=== PATIENT | male | born 1990 | race Caucasian/White ===

== ENCOUNTER 2016-11-22 11:08 | Emergency (ER) | payer OTHER ==
[2016-11-22 11:24] VITALS: BMI 36.0
[2016-11-22] MEDS ORDERED: Sodium Chloride 0.9% 1,000 ML IV STA (11:39)
--- NOTE | 2016-11-22 11:39 | ED PDOC ---
Arrival/HPI - General Chief Complaint: Male Genitourinary Time Seen by Provider: 11/22/16 11:32 Historian: Patient - History of Present Illness Narrative History of Present Illness (Text): 11/22/16 11:38 A 26 year old male, whose past medical history includes hypertension and kidney stones, presents to the emergency department complaining of right lower abdominal pain since this morning. Patient notes right flank pain, nausea and non-bilious non-bloody vomiting. Patient reports his symptoms feels similar to previous kidney stones. Patient denies any fever, diarrhea, urinary symptoms, back pain, chest pain,shortness of breath or any other complaints. PMD: Dr. Tarango Time/Duration: Other (This morning) Symptom Course: Unchanged Quality: Other Context: Home Associated Symptoms (Text): 11/22/16 12:25 3 hour history of severe right lower quadrant and right flank pain similar to previous kidney stones. There was some nausea and vomiting but no diarrhea. No genitourinary symptoms. No trauma. No fever or chills. Past Medical History - Provider Review Nursing Documentation Reviewed: Yes - Infectious Disease Hx of Infectious Diseases: None - Tetanus Immunization Tetanus Immunization: Unknown - Cardiac Hx Cardiac Disorders: No Hx Hypertension: Yes - Pulmonary Hx Respiratory Disorders: No - Neurological Hx Neurological Disorder: No - HEENT Hx HEENT Disorder: No - Renal Hx Renal Disorder: Yes Hx Kidney Stones: Yes - Endocrine/Metabolic Hx Endocrine Disorders: Yes Hx Diabetes Mellitus Type 2: Yes Other/Comment: NIDDM - Hematological/Oncological Hx Blood Disorders: No - Integumentary Hx Dermatological Disorder: No - Musculoskeletal/Rheumatological Hx Musculoskeletal Disorders: No - Gastrointestinal Hx Gastrointestinal Disorders: No - Genitourinary/Gynecological Hx Genitourinary Disorders: No - Psychiatric Hx Psychophysiologic Disorder: No Hx Substance Use: No - Past Surgical History Past Surgical History: No Previous - Anesthesia Hx Anesthesia: No - Suicidal Assessment Feels Threatened In Home Enviroment: No Family/Social History - Physician Review Nursing Documentation Reviewed: Yes Family/Social History: No Known Family HX Smoking Status: Never Smoked Hx Alcohol Use: No Hx Substance Use: No Allergies/Home Meds Allergies/Adverse Reactions: Allergies No Known Allergies Allergy (Verified 04/06/16 08:32) Home Medications: Home Meds Medication Instructions Recorded Confirmed Metformin HCl [Glucophage] 2,000 mg PO HS 03/23/14 11/22/16 Lisinopril [Zestril] 5 mg PO DAILY 11/22/16 11/22/16 Review of Systems - Physician Review All systems were reviewed & negative as marked: Yes - Review of Systems Constitutional: absent: Fevers Respiratory: absent: SOB Cardiovascular: absent: Chest Pain Gastrointestinal: Abdominal Pain (RLQ pain), Nausea, Vomiting. absent: Diarrhea Genitourinary Male: absent: Dysuria, Frequency, Hematuria, Urinary Output Changes Musculoskeletal: Other (Right flank pain). absent: Back Pain Physical Exam Vital Signs Reviewed: Yes Vital Signs Temp Pulse Resp BP Pulse Ox 11/22/16 13:30 98.5 F 75 18 111/70 99 11/22/16 12:42 69 18 135/61 98 11/22/16 11:21 98.9 F 77 16 138/64 98 Temperature: Afebrile Blood Pressure: Normal Pulse: Regular Respiratory Rate: Normal Appearance: Positive for: Well-Appearing, Non-Toxic, Uncomfortable, Other ( Diaphoretic) Pain Distress: Moderate Mental Status: Positive for: Alert and Oriented X 3 - Systems Exam Head: Present: Atraumatic, Normocephalic Pupils: Present: PERRL Extroacular Muscles: Present: EOMI Conjunctiva: Present: Normal Respiratory/Chest: Present: Clear to Auscultation, Good Air Exchange. No: Respiratory Distress, Accessory Muscle Use Cardiovascular: Present: Regular Rate and Rhythm, Normal S1, S2. No: Murmurs Abdomen: Present: Normal Bowel Sounds. No: Tenderness, Distention, Peritoneal Signs Back: Present: Normal Inspection. No: CVA Tenderness Upper Extremity: Present: Normal Inspection. No: Cyanosis, Edema Lower Extremity: Present: Normal Inspection. No: Edema Neurological: Present: GCS=15, CN II-XII Intact, Speech Normal, Motor Func Grossly Intact Skin: Present: Warm, Normal Color, Diaphoretic. No: Rashes Psychiatric: Present: Alert, Oriented x 3, Normal Insight, Normal Concentration Medical Decision Making ED Course and Treatment: 11/22/16 11:38 Impression: A 26 year old male with right lower abdominal and right flank pain. Patient notes nausea and vomiting. Patient states his symptoms feels similar to previous kidney stones. Plan: -- Abdomen and pelvis CT -- Labs -- Urine culture and Urinalysis -- IV fluids, Toradol and Zofran -- Reassess and disposition Progress Notes: 11/22/16 12:26 Patient passed a stone wall in the emergency department. His symptoms have completely resolved. He feels better and wants to go home. His workup is not yet complete, but he reports that he feels fine and wants to go home. He will be discharged in stable condition. Follow up in the emergency department as needed - Lab Interpretations Lab Results: 11/22/16 12:10 11/22/16 12:10 Lab Results 11/22/16 12:10: WBC 4.5 D, RBC 5.29, Hgb 15.1, Hct 43.6, MCV 82.4, MCH 28.5, MCHC 34.6, RDW 12.8, Plt Count 242, MPV 10.4, Gran % 51.3, Lymph % (Auto) 37.5 H , [place] % (Auto) 7.5 H, Eos % (Auto) 3.3, Baso % (Auto) 0.4, Gran # 2.32, Lymph # 1.7, [place] # 0.3, Eos # 0.2, Baso # 0.02, Sodium 137, Potassium 4.4, Chloride 98, Carbon Dioxide 26, Anion Gap 17, BUN 15, Creatinine 0.7, Est GFR ( Amer) > 60, Est GFR (Non-Af Amer) > 60, Random Glucose 148 H, Calcium 10.1, Total Bilirubin 0.6, AST 29, ALT 44, Alkaline Phosphatase 71, Total Protein 8.7 H, Albumin 4.9 H, Globulin 3.7, Albumin/Globulin Ratio 1.3, Lipase 59 11/22/16 11:45: Urine Color Light yellow, Urine Appearance Clear, Urine pH 6.5, Ur Specific [place] 1.010, Urine Protein Negative, Urine Glucose (UA) Negative, Urine Ketones Negative, Urine Blood Moderate H, Urine Nitrate Negative, Urine Bilirubin Negative, Urine Urobilinogen 0.2, Ur Leukocyte Esterase Negative, Urine RBC 10 - 15, Urine WBC 0 - 2, Ur Epithelial Cells 0 - 2, Urine Bacteria Trace I have reviewed the lab results: Yes - RAD Interpretation Radiology Orders: 11/22/16 11:39 ABD & PELVIS W/O PO OR IV CONT [CT] Stat - Medication Orders Current Medication Orders: Discontinued Medications Sodium Chloride (Sodium Chloride 0.9%) 1,000 mls @ 1,000 mls/hr IV .Q1H STA Stop: 11/22/16 12:38 Last Admin: 11/22/16 11:45 Dose: 1,000 MLS/HR eMAR Start Stop Document 11/22/16 11:45 SF (Rec: 11/22/16 11:57 [place] [facility] [id number] Intravenous Solution Start Date 11/22/16 Start Time 11:57 End Date 11/22/16 End time 12:57 Total Infusion Time 60 Ketorolac Tromethamine (Toradol) 30 mg IVP STAT STA Stop: 11/22/16 11:40 Last Admin: 11/22/16 11:45 Dose: 30 MG IVP Administration Document 11/22/16 11:45 SF (Rec: 11/22/16 11:56 [place] [facility] [id number] Charges for Administration # of IVP Administrations 1 Ondansetron HCl (Zofran Inj) 4 mg IVP STAT STA Stop: 11/22/16 11:40 Last Admin: 11/22/16 11:45 Dose: 4 MG IVP Administration Document 11/22/16 11:45 SF (Rec: 11/22/16 11:56 [place] [facility] [id number]) Charges for Administration # of IVP Administrations 1 - Scribe Statement The provider has reviewed the documentation as recorded by the July Naqvi Provider Scribe Attestation: All medical record entries made by the Scribe were at my direction and personally dictated by me. I have reviewed the chart and agree that the record accurately reflects my personal performance of the history, physical exam, medical decision making, and the department course for this patient. I have also personally directed, reviewed, and agree with the discharge instructions and disposition. Disposition/Present on Arrival - Present on Arrival Any Indicators Present on Arrival: No History of DVT/PE: No History of Uncontrolled Diabetes: No Urinary Catheter: No History of Decub. Ulcer: No History Surgical Site Infection Following: None - Disposition Have Diagnosis and Disposition been Completed?: Yes Diagnosis: Renal colic, Nausea and vomiting, Kidney stone on right side Disposition: HOME/ ROUTINE Disposition Time: 12:27 Patient Plan: Discharge Condition: IMPROVED Discharge Instructions (ExitCare): Renal Colic (ED) Additional Instructions: Follow-up with PMD and urologist. Follow up in the ER as needed. Prescriptions: Tramadol HCl [Ultram] 50 mg PO Q6 PRN #14 tab PRN Reason: Pain Referrals: Beba Tarango MD [Primary Care Provider] - Follow up with primary
[2016-11-22 11:55] LABS: PH,URINE 6.5 (4.7-8.0); URINE BILIRUBIN NEGATIVE (NEGATIVE); URINE BLOOD MODERATE (NEGATIVE); URINE GLUCOSE (UA) NEGATIVE (NEGATIVE); URINE KETONE NEGATIVE (NEGATIVE); URINE LEUKOCYTE ESTERASE NEGATIVE Leu/uL (NEGATIVE); URINE PROTEIN NEGATIVE mg/dL (<30 mg/dL); URINE UROBILINOGEN 0.2 E.U./dL (<1 E.U./dL)
[2016-11-22 11:57] LABS: URINE APPEARANCE CLEAR (CLEAR); URINE COLOR LIGHT YELLOW (YELLOW)
[2016-11-22 12:13] LABS: URINE BACTERIA TRACE (NEG); URINE EPITHELIAL CELLS 0 - 2 /hpf (0-5); URINE WBC 0 - 2 /hpf (0-6)
[2016-11-22 12:21] LABS: ADD MANUAL DIFF? NO
[2016-11-22 12:31] LABS: BASO # 0.02 K/mm3 (0.0-2.0); BASO % 0.4 % (0.0-3.0); EOS # 0.2 (0.0-0.7); EOS % 3.3 % (1.5-5.0); GRAN # 2.32 (1.4-6.5); GRAN % 51.3 % (50.0-68.0); HEMATOCRIT 43.6 % (42.0-52.0); LYMPH # 1.7 (1.2-3.4); LYMPH % 37.5 % (22.0-35.0); MEAN CELL VOLUME 82.4 fL (80.0-105.0); MEAN CORPUSCULAR HEMOGLOBIN 28.5 pg (25.0-35.0); MEAN CORPUSCULAR HGB CONC 34.6 g/dl (31.0-37.0); MEAN PLATELET VOLUME 10.4 fl (7.0-11.0); MONO # 0.3 (0.1-0.6); MONO % 7.5 % (1.0-6.0); PLATELET COUNT 242 10^3/uL (120.0-450.0); RED CELL DISTRIBUTION WIDTH 12.8 % (11.5-14.5); WHITE BLOOD COUNT 4.5 10^3/ul (4.5-11.0)
[2016-11-22 12:35] LABS: ALB/GLOB RATIO 1.3 (1.1-1.8); ALKALINE PHOSPHATASE 71 U/L (38-133); ALT/SGPT 44 U/L (7-56); AST/SGOT 29 U/L (15-59); BILIRUBIN,TOTAL 0.6 mg/dL (0.2-1.3); BLOOD UREA NITROGEN 15 mg/dL (7-21); CALCIUM 10.1 mg/dL (8.4-10.5); CARBON DIOXIDE 26 mmol/L (21-33); CHLORIDE 98 mmol/L (98-107); GFR AFRICAN-AMERICAN > 60; GLUCOSE,RANDOM 148 mg/dL (70-110); LIPASE 59 U/L (23-300); POTASSIUM 4.4 mmol/L (3.6-5.0); SODIUM 137 mmol/L (132-148); TOTAL PROTEIN 8.7 g/dL (5.8-8.3)
[2016-11-22 12:42] VITALS: RESP 18
[2016-11-22 13:34] VITALS: BP 111/70; PULSE 75; TEMP 98.5; O2SAT 99
--- NOTE | 2016-11-22 13:43 | CT ---
PROCEDURE: CT Abdomen and Pelvis without intravenous contrast HISTORY: Right stone COMPARISON: None. TECHNIQUE: CT scan of the abdomen and pelvis was performed without administration of oral or intravenous contrast for targeted evaluation of urinary calculi. Coronal and sagittal reformatted images were obtained. Radiation dose: Total exam DLP = 954.74 mGy-cm. FINDINGS: LOWER THORAX: The lung bases are clear. LIVER: The liver is enlarged and measures 22 cm in craniocaudad dimension. There is diffuse low-attenuation in the liver. GALLBLADDER AND BILE DUCTS: There are no calcified gallstones. PANCREAS: The pancreas is normal in size. No gross lesion or ductal dilatation. SPLEEN: There is borderline splenomegaly ADRENALS: Both adrenal glands are normal without discrete nodule. KIDNEYS AND URETERS: Both kidneys are normal in size. There are several small nonobstructing stones in the right kidney, the largest in the interpolar region measures 5 mm. There is mild right perinephric fat stranding, mild fullness in the right collecting system and mild dilatation of the right proximal and mid ureteral without obstructing stone. There are punctate nonobstructing stones in the left kidney. No hydronephrosis. VASCULATURE: Normal in appearance. BOWEL: The small bowel loops are normal in caliber. The colon is unremarkable. No obstruction. No gross mural thickening. APPENDIX: The appendix is normal in caliber and there is intraluminal air without surrounding inflammatory changes. PERITONEUM: No free air or free fluid. LYMPH NODES: No pathologic lymphadenopathy. BLADDER: There is mild circumferential mural thickening of the urinary bladder wall. No intraluminal stone. REPRODUCTIVE: Normal in appearance. BONES: Normal for the patient's age. No acute fracture. OTHER FINDINGS: None. IMPRESSION: 1. Small nonobstructing stones in the right kidney, the largest in the interpolar region measures 5 mm. Mild right perinephric fat stranding, fullness in the collecting system and dilatation of the proximal ureteral may represent recent passage of renal stone although no obstructive uropathy is identified. 2. Punctate nonobstructing stones in the left kidney. 3. Apparent mild mural thickening of the urinary bladder wall is nonspecific and could be related to underdistention however cystitis cannot be excluded. Please correlate with urine analysis. 4. Mild hepatosplenomegaly. Hepatic steatosis.
== END 2016-11-22 13:32 | disposition home or self-care (01) ==
LOC: ED 11:08
DX: N23 Unspecified renal colic (principal); N20.0 Calculus of kidney; R11.2 Nausea with vomiting, unspecified; E11.9 Type 2 diabetes mellitus without complications; I10 Essential (primary) hypertension
CPT/HCPCS: 74176; 80053; 81001; 83690; 85025; 87086; 96361; 96374; 96375; 99285; J1885; J2405; J7040

== ENCOUNTER 2018-08-10 09:42 | Emergency (ER) | payer MEDICAID, OTHER ==
[2018-08-10 09:47] VITALS: BMI 29.6
[2018-08-10 09:57] VITALS: BP 102/58; PULSE 71; RESP 16; TEMP 98; O2SAT 98
[2018-08-10 10:18] LABS: URINE APPEARANCE CLEAR (CLEAR); URINE BILIRUBIN NEGATIVE (NEGATIVE); URINE BLOOD MODERATE (NEGATIVE); URINE COLOR YELLOW (YELLOW); URINE GLUCOSE (UA) NEGATIVE (NEGATIVE); URINE LEUKOCYTE ESTERASE NEGATIVE Leu/uL (NEGATIVE); URINE PROTEIN NEGATIVE mg/dL (<30 mg/dL); URINE UROBILINOGEN 0.2 E.U./dL (<1 E.U./dL)
[2018-08-10 10:35] LABS: URINE BACTERIA FEW (NEG); URINE EPITHELIAL CELLS 0 - 2 /hpf (0-5); URINE RBC 15 - 20 /hpf (0-2); URINE WBC 0 - 2 /hpf (0-6)
--- NOTE | 2018-08-10 10:43 | ED PDOC ---
Arrival/HPI - General Chief Complaint: Male Genitourinary Time Seen by Provider: 08/10/18 09:52 Historian: Patient - History of Present Illness Narrative History of Present Illness (Text): 08/10/18 10:40 A 27 year old male, whose past medical history includes renal calculi, kidney stones, hypertension, hyperlipidemia, and diabetes, presents to the emergency department complaining of left-side abdominal pain. Patient reports upon arrival to the ER, however, patient passed kidney stone and felt much better. Patient's second complaint is experiencing pain to right lower anterior rib region. States he was in his car and was reaching for something on the other side of it, and felt a sudden pop to right lower rib area, and pain remained. Patient denies any fever, chills, cough, chest pain, shortness of breath, nausea, vomiting, diarrhea, syncope, abnormal bowel movement, or any other complaints at this time. PMD: Dr. Tarango Past Medical History - Provider Review Nursing Documentation Reviewed: Yes - Infectious Disease Hx of Infectious Diseases: None - Tetanus Immunization Tetanus Immunization: Unknown - Cardiac Hx Cardiac Disorders: No Hx Hypertension: Yes - Pulmonary Hx Respiratory Disorders: No - Neurological Hx Neurological Disorder: No - HEENT Hx HEENT Disorder: No - Renal Hx Renal Disorder: Yes Hx Kidney Stones: Yes - Endocrine/Metabolic Hx Endocrine Disorders: Yes Hx Diabetes Mellitus Type 2: Yes Other/Comment: NIDDM - Hematological/Oncological Hx Blood Disorders: No - Integumentary Hx Dermatological Disorder: No - Musculoskeletal/Rheumatological Hx Musculoskeletal Disorders: No - Gastrointestinal Hx Gastrointestinal Disorders: No - Genitourinary/Gynecological Hx Genitourinary Disorders: No - Psychiatric Hx Psychophysiologic Disorder: No Hx Substance Use: No - Past Surgical History Past Surgical History: No Previous - Anesthesia Hx Anesthesia: No - Suicidal Assessment Feels Threatened In Home Enviroment: No Family/Social History - Physician Review Nursing Documentation Reviewed: Yes Family/Social History: No Known Family HX Smoking Status: Never Smoked Hx Alcohol Use: No Hx Substance Use: No Allergies/Home Meds Allergies/Adverse Reactions: Allergies No Known Allergies Allergy (Verified 04/06/16 08:32) Home Medications: Home Meds Medication Instructions Recorded Confirmed Metformin HCl [Glucophage] 2,000 mg PO HS 03/23/14 08/10/18 Lisinopril [Zestril] 5 mg PO DAILY 11/22/16 08/10/18 Review of Systems - Physician Review All systems were reviewed & negative as marked: Yes - Review of Systems Constitutional: absent: Fevers, Night Sweats Respiratory: absent: SOB, Cough Cardiovascular: absent: Chest Pain, Syncope Gastrointestinal: Abdominal Pain (left-side abdominal pain). absent: Diarrhea, Nausea, Vomiting Genitourinary Male: absent: Urinary Output Changes Musculoskeletal: Other (right lower anterior rib pain) Neurological: absent: Headache Physical Exam - Physical Exam Narrative Physical Exam (Text): PE: Gen: NAD, cooperative, well appearing, non-toxic. Head: NCAT. HEENT: EYES: PERRL, EOMI, conjunctiva clear, EARS: TMs clear MOUTH: moist MM, posterior pharynx without erythema or exudate, uvula midline. CV: (+) S1S2, RRR, no M/G/R LUNGS: CTA B/L, No W/R/R, good air movement Abd: Soft, tenderness to palpation to right lower anterior ribcage, no stepoffs, no crepitus, no guarding, rebound or rigidity. Neuro: AAO x 3, GCS 15, CN 2-12 intact, motor and sensory grossly intact, 5/5 muscle strength B/L UE's and LE's. ext: no cyanosis or edema Vital Signs Reviewed: Yes Vital Signs Temp Pulse Resp BP Pulse Ox 08/10/18 09:52 98 F 71 16 102/58 L 98 08/10/18 09:48 98 F 71 16 102/58 L 99 Temperature: Afebrile Blood Pressure: Normal Pulse: Regular Respiratory Rate: Normal Appearance: Positive for: Well-Appearing, Non-Toxic, Comfortable Pain Distress: None Mental Status: Positive for: Alert and Oriented X 3 Medical Decision Making ED Course and Treatment: 08/10/18 10:44 Impression: 27 year old male with left-side abdominal pain, however it was relieved upon passing a kidney stone here in the ER Secondary complaint is right lower anterior rib pain. Plan: -- Right Ribs & PA Chest X-Ray -- Reassess and disposition Prior Visits: Notes and results from previous visits were reviewed. Patient was last seen in the emergency department on 11/22/2016 for right lower abdominal pain, nausea and non-bilious non-bloody vomiting. Patient was discharged home. Progress Notes: 08/10/18 11:43 Rib X-Ray shows no fracture, no deformity, negative findings, as read and interpreted by me. Will discuss results with patient, who will be discharged from the ER and have kidney stone placed in contained to take with him. Will be prescribed Motrin and Tylenol for the rib pain. - Lab Interpretations Lab Results: Lab Results 08/10/18 10:00: Urine Color Yellow, Urine Appearance Clear, Urine pH 6.0, Ur Specific [place] >= 1.030, Urine Protein Negative, Urine Glucose (UA) Negative, Urine Ketones Negative, Urine Blood Moderate H, Urine Nitrate Negative, Urine Bilirubin Negative, Urine Urobilinogen 0.2, Ur Leukocyte Esterase Negative, Urine RBC 15 - 20, Urine WBC 0 - 2, Ur Epithelial Cells 0 - 2, Urine Bacteria Few - Scribe Statement The provider has reviewed the documentation as recorded by the July Chirinos Provider Scribe Attestation: All medical record entries made by the Scribe were at my direction and personally dictated by me. I have reviewed the chart and agree that the record accurately reflects my personal performance of the history, physical exam, medical decision making, and the department course for this patient. I have also personally directed, reviewed, and agree with the discharge instructions and disposition. Disposition/Present on Arrival - Present on Arrival Any Indicators Present on Arrival: No History of DVT/PE: No History of Uncontrolled Diabetes: No Urinary Catheter: No History of Decub. Ulcer: No History Surgical Site Infection Following: None - Disposition Have Diagnosis and Disposition been Completed?: Yes Diagnosis: Kidney stone, Muscle strain of chest wall Disposition: HOME/ ROUTINE Disposition Time: 11:47 Patient Plan: Discharge Condition: GOOD Discharge Instructions (ExitCare): Muscle Strain, Kidney Stones (DC) Prescriptions: Ibuprofen [Motrin Tab] 800 mg PO TID #30 tab Forms: [employer] ([place]an) - Notes Notes (Text): 08/10/18 11:48 Make an appointment to see your PMD, Dr. Sukhdeep Yoder, in 1-2 days. Take kidney stone with you for further evaluation and management. Return to the Emergency Department for new, worsening or concerning symptoms.
--- NOTE | 2018-08-10 12:12 | RAD ---
Date of service: 08/10/2018 PROCEDURE: Radiographs of the Chest and Right Ribs. HISTORY: right ribcage pain COMPARISON: None available. TECHNIQUE: Frontal radiograph of the chest and multiple oblique radiographs of the right ribs were obtained. FINDINGS: RIGHT RIBS: No fracture or focal lesion visualized. LUNGS: Clear. PLEURA: No pneumothorax or pleural fluid. CARDIOVASCULAR: Normal cardiac size. No pulmonary vascular congestion. No aortic atherosclerotic calcification present OTHER FINDINGS: None. IMPRESSION: Unremarkable radiographs of the chest and right ribs. No right rib fracture.
== END 2018-08-10 12:10 | disposition home or self-care (01) ==
LOC: ED 09:42
DX: N20.0 Calculus of kidney (principal); S29.011A Strain of muscle and tendon of front wall of thorax, initial encounter; X58.XXXA Exposure to other specified factors, initial encounter; E11.9 Type 2 diabetes mellitus without complications; I10 Essential (primary) hypertension; E78.5 Hyperlipidemia, unspecified